=== PATIENT | male | born 1980 | race African-American/Black ===

== ENCOUNTER → 2023-09-29 | Day surgery (SDC) | payer MEDICARE ==
[2023-09-26 16:10] LABS: BASOPHILS # (AUTO) 0.1 (0.0-0.1); BASOPHILS % 1.5 % (0.0-1.0); EOSINOPHILS # (AUTO) 0.3 (0.0-0.4); EOSINOPHILS % 5.2 % (0.0-6.0); HEMATOCRIT 34.6 % (38.2-49.6); HEMOGLOBIN 11.3 g/dL (14.0-18.0); LYMPHOCYTES # (AUTO) 1.9 (1.0-3.2); LYMPHOCYTES % 35.4 % (18.0-39.1); MEAN CORPUSCULAR HEMOGLOBIN 29.5 pg (28-32); MEAN CORPUSCULAR HGB CONC 32.7 g/dL (31-35); MEAN CORPUSCULAR VOLUME 90.3 fL (81-99); MONOCYTES # (AUTO) 0.5 (0.2-0.8); MONOCYTES % 9.9 % (4.4-11.3); NEUTROPHILS # (AUTO) 2.6 (2.1-6.9); NEUTROPHILS % 47.6 % (38.7-80.0); PLATELET COUNT 292 x10e3/uL (140-360); RED BLOOD COUNT 3.83 x10e6/uL (4.3-5.7); RED CELL DISTRIBUTION WIDTH 17.7 % (11.7-14.4); WHITE BLOOD COUNT 5.37 x10e3/uL (4.8-10.8)
[~2023-09-29] MED LIST: ACETAMINOPHEN 1000 MG/100 ML IV PRN; ASPIRIN 325 MG TAB PO SCH; CALCIUM PO; CARVEDILOL6.25 MG PO; CELECOXIB 100 MG CAP PO SCH; DEXAMETHASONE SOD PHOS INJ 4 MG/ML SDV ONE; DIPHENHYDRAMINE HCL INJ 50 MG/ML VIAL IV PRN; DOCUSATE SODIUM 100 MG CAP PO PRN; FENTANYL CITRATE/PF 100MCG/2 ML INJ ONE; FEROSUL325 MG PO; GLYCOPYRROLATE INJ 0.2 MG/ML VIAL ONE; HYDRALAZINE HCL 20 MG/ML VIAL ONE; HYDROCODONE/APAP 5MG-325MG TAB PO PRN; HYDROCODONE/APAP 7.5MG-325MG 1 EA TAB PO PRN; IBUPROFEN600 MG PO; LABETALOL HCL 5 MG/ML 20ML VIAL ONE; LIDOCAINE HCL 2% LOCAL INJ 5 ML SDV VIAL INJ ONE; MICARDIS20 MG PO; MIDAZOLAM HCL 2 MG/2 ML VIAL ONE; NEOSTIGMINE 1 MG/ML 10ML VIAL ONE; NEURONTIN100 MG PO; ONDANSETRON HCL INJ 2MG/ML 2ML 2 MG/ML VIAL IV PRN; ONDANSETRON HCL INJ 2MG/ML 2ML 2 MG/ML VIAL ONE; PROPOFOL IV EMULSION 10 MG/ML 20 ML VIAL ONE; ROCURONIUM BROMIDE 10 MG/ML 5ML VIAL IV ONE; ROPIVACAINE 246.25 MG, EPINEPHRINE HCL 1:1000 1ML 0.5 MG, CLONIDINE HCL 0.08 MG, KETORO... INJ ONE; SEVOFLURANE INHAL SOLN 250 ML PEN BTL ONE; SODIUM CHLORIDE 0.9% 1000ML 1,000 ML IV SCH; SODIUM CHLORIDE 0.9% 500ML 500 ML ONE; TRANEXAMIC ACID 20 ML ONE; VITAMIN D31 ML; Vancomycin IV 500 MG ONE
[2023-09-29] MEDS: DEXAMETHASONE SOD PHOS 10 MG/1 ML VIAL ONE (08:39)
[2023-09-29] MEDS: LACTATED RINGER'S 1,000 ML ONE (08:39)
[2023-09-29] MEDS: GABAPENTIN 300 MG CAP ONE (08:39)
[2023-09-29] MEDS: CEFAZOLIN SODIUM 2 GM ONE (08:39)
[2023-09-29] MEDS: CELECOXIB 200 MG CAP ONE (08:40)
[2023-09-29] MEDS: HYDROMORPHONE 1MG/1ML INJ ONE ×2 (11:58→12:20)
[2023-09-29 14:00] VITALS: BP 140/89; PULSE 80; RESP 14; O2SAT 100
== END | disposition home health service (06) ==
LOC: OR 08:13
PROVIDERS: ATTEND Specialist
DX: M87.9 Osteonecrosis, unspecified (principal); M16.11 Unilateral primary osteoarthritis, right hip; I10 Essential (primary) hypertension; I49.9 Cardiac arrhythmia, unspecified; Z01.810 Encounter for preprocedural cardiovascular examination; Z01.812 Encounter for preprocedural laboratory examination; Z79.1 Long term (current) use of non-steroidal anti-inflammatories (NSAID); Z79.899 Other long term (current) drug therapy
CPT/HCPCS: 27130; 36415 ×2; 72170; 85025; 86850; 86900; 93005; 97116; 97161; 97530; C1713; C1776 ×3; J0171; J0360; J1100 ×2; J1170; J1885; J2001; J2250; J2405; J2704; J2710; J2795; J3010; J3370; J3490; J7040; J7121

== ENCOUNTER 2024-04-06 07:44 | Observation (INO) | payer MEDICARE ==
[2024-04-05 11:45] LABS: BASOPHILS # (AUTO) 0.1 (0.0-0.1); BASOPHILS % 1.5 % (0.0-1.0); EOSINOPHILS # (AUTO) 0.3 (0.0-0.4); EOSINOPHILS % 5.3 % (0.0-6.0); HEMATOCRIT 43.9 % (38.2-49.6); HEMOGLOBIN 13.4 g/dL (14.0-18.0); LYMPHOCYTES # (AUTO) 1.4 (1.0-3.2); MEAN CORPUSCULAR HEMOGLOBIN 23.6 pg (28-32); MEAN CORPUSCULAR HGB CONC 30.5 g/dL (31-35); MEAN CORPUSCULAR VOLUME 77.4 fL (81-99); MONOCYTES # (AUTO) 0.8 (0.2-0.8); MONOCYTES % 11.9 % (4.4-11.3); NEUTROPHILS # (AUTO) 3.8 (2.1-6.9); NEUTROPHILS % 59.1 % (38.7-80.0); PLATELET COUNT 378 x10e3/uL (140-360); RED BLOOD COUNT 5.67 x10e6/uL (4.3-5.7); RED CELL DISTRIBUTION WIDTH 20.5 % (11.7-14.4); WHITE BLOOD COUNT 6.46 x10e3/uL (4.8-10.8)
[~2024-04-06] VITALS: Ht 177.8 cm; Wt 63.5 kg
[~2024-04-06 07:44] MED LIST changes: -ACETAMINOPHEN 1000 MG/100 ML IV PRN; +ACETAMINOPHEN-1 EAC4 PO; +AMLODIPINE BESY10 MG PO; -ASPIRIN 325 MG TAB PO SCH; +AUGMENTIN 500-1 EACH PO; +CELEBREX200 MG PO; -CELECOXIB 100 MG CAP PO SCH; -DEXAMETHASONE SOD PHOS INJ 4 MG/ML SDV ONE; -DIPHENHYDRAMINE HCL INJ 50 MG/ML VIAL IV PRN; -DOCUSATE SODIUM 100 MG CAP PO PRN; +DOXYCYCLINE HY100 MG PO; -FENTANYL CITRATE/PF 100MCG/2 ML INJ ONE; -GLYCOPYRROLATE INJ 0.2 MG/ML VIAL ONE; -HYDRALAZINE HCL 20 MG/ML VIAL ONE; -HYDROCODONE/APAP 5MG-325MG TAB PO PRN; -HYDROCODONE/APAP 7.5MG-325MG 1 EA TAB PO PRN; -LABETALOL HCL 5 MG/ML 20ML VIAL ONE; -LIDOCAINE HCL 2% LOCAL INJ 5 ML SDV VIAL INJ ONE; -MIDAZOLAM HCL 2 MG/2 ML VIAL ONE; -NEOSTIGMINE 1 MG/ML 10ML VIAL ONE; -ONDANSETRON HCL INJ 2MG/ML 2ML 2 MG/ML VIAL IV PRN; -ONDANSETRON HCL INJ 2MG/ML 2ML 2 MG/ML VIAL ONE; -PROPOFOL IV EMULSION 10 MG/ML 20 ML VIAL ONE; -ROCURONIUM BROMIDE 10 MG/ML 5ML VIAL IV ONE; -ROPIVACAINE 246.25 MG, EPINEPHRINE HCL 1:1000 1ML 0.5 MG, CLONIDINE HCL 0.08 MG, KETORO... INJ ONE; -SEVOFLURANE INHAL SOLN 250 ML PEN BTL ONE; -SODIUM CHLORIDE 0.9% 1000ML 1,000 ML IV SCH; -SODIUM CHLORIDE 0.9% 500ML 500 ML ONE; -TRANEXAMIC ACID 20 ML ONE; -Vancomycin IV 500 MG ONE
[2024-04-06] MEDS: DEXAMETHASONE SOD PHOS 10 MG/1 ML VIAL ONE (07:59)
[2024-04-06] MEDS: GABAPENTIN 300 MG CAP ONE (07:59)
[2024-04-06] MEDS: LACTATED RINGER'S 1,000 ML ONE (07:59)
[2024-04-06] MEDS: CEFAZOLIN SODIUM 2 GM ONE (08:00)
[2024-04-06] MEDS: CELECOXIB 200 MG CAP ONE (08:00)
[2024-04-06] MEDS ORDERED: PROPOFOL IV EMULSION 10 MG/ML 20 ML VIAL ONE (08:57)
[2024-04-06] MEDS ORDERED: LIDOCAINE HCL 2% LOCAL INJ 5 ML SDV VIAL INJ ONE (08:57)
[2024-04-06] MEDS ORDERED: ONDANSETRON HCL INJ 2MG/ML 2ML 2 MG/ML VIAL ONE (08:57)
[2024-04-06] MEDS ORDERED: MIDAZOLAM HCL 2 MG/2 ML VIAL ONE (09:36)
[2024-04-06] MEDS ORDERED: SODIUM CHLORIDE 0.9% 100 ML ONE ×2 (09:37→10:17)
[2024-04-06] MEDS ORDERED: FENTANYL CITRATE/PF 100MCG/2 ML INJ ONE (09:40)
[2024-04-06] MEDS ORDERED: PHENYLEPHRINE HCL 1% 10 MG/ML VIAL ONE (09:51)
[2024-04-06] MEDS ORDERED: EPHEDRINE SULFATE INJ 50 MG/ML VIAL ONE (09:57)
[2024-04-06] MEDS ORDERED: SEVOFLURANE INHAL SOLN 250 ML PEN BTL ONE (10:07)
[2024-04-06] MEDS ORDERED: DIPHENHYDRAMINE HCL INJ 50 MG/ML VIAL IV PRN (11:00)
[2024-04-06] MEDS ORDERED: ONDANSETRON HCL INJ 2MG/ML 2ML 2 MG/ML VIAL IV PRN (11:00)
[2024-04-06] MEDS ORDERED: HYDROCODONE/APAP 7.5MG-325MG 1 EA TAB PO PRN (11:00)
[2024-04-06] MEDS ORDERED: DOCUSATE SODIUM 100 MG CAP PO PRN (11:00)
[2024-04-06] MEDS: SODIUM CHLORIDE 0.9% 1000ML 1,000 ML IV SCH (11:00)
[2024-04-06 13:37] VITALS: BP 133/88; PULSE 87; RESP 18; TEMP 97; O2SAT 99
[2024-04-06] MEDS ORDERED: MICARDIS40 MG PO (14:03)
[2024-04-06] MEDS: CELECOXIB 100 MG CAP PO SCH (17:25)
[2024-04-06] MEDS: ROPIVACAINE/EPI/CLONIDINE/KET 50 ML SYRINGE INJ ONE (17:26)
[2024-04-06 20:00] VITALS: BP 133/88; PULSE 87; RESP 18; TEMP 97; O2SAT 99
[2024-04-06 20:36] VITALS: BP 117/98; PULSE 83; RESP 16; TEMP 97.3; O2SAT 100
[2024-04-06] MEDS: ASPIRIN 325 MG TAB PO SCH (22:08)
[2024-04-07 00:20] VITALS: BP 112/87; PULSE 90; RESP 17; TEMP 97.4; O2SAT 100
[2024-04-07 04:15] VITALS: BP 110/94; PULSE 86; RESP 18; TEMP 97.8; O2SAT 100
[2024-04-07] MEDS: HYDROCODONE/APAP 5MG-325MG TAB PO PRN (05:05)
[2024-04-07 05:16] LABS: HEMATOCRIT 30.8 % (38.2-49.6); HEMOGLOBIN 9.7 g/dL (14.0-18.0)
[2024-04-07 08:00] VITALS: BP 115/95; PULSE 88; RESP 20; TEMP 97.6; O2SAT 100
[2024-04-07] MEDS: AMLODIPINE BESYLATE 10 MG TAB PO SCH (09:09)
[2024-04-07] MEDS: GABAPENTIN 100 MG CAP PO SCH (09:09)
[2024-04-07] MEDS ORDERED: ACETAMINOPHEN 1000 MG/100 ML IV PRN (11:00)
[2024-04-07] MEDS ORDERED: ASPIRIN81 MG PO (11:26)
[2024-04-07 11:42] VITALS: BP 115/95; PULSE 88; RESP 20; TEMP 97.6; O2SAT 100
[2024-04-07 12:00] VITALS: BP 126/93; PULSE 85; RESP 18; TEMP 97.8; O2SAT 100
== END 2024-04-07 12:55 | disposition home health service (06) ==
LOC: OR 07:44 → PACU V 12:38 → MED/SURG 13:33
PROVIDERS: ADMIT Specialist; ATTEND Specialist
DX: M87.052 Idiopathic aseptic necrosis of left femur (principal); D64.9 Anemia, unspecified; I10 Essential (primary) hypertension; Z72.0 Tobacco use; Z96.641 Presence of right artificial hip joint
CPT/HCPCS: 27130; 36415 ×2; 72170; 85014; 85018; 85025; 86850; 86900; 93005; 97116 ×2; 97161; 97530 ×2; C1713; C1776 ×3; G0378 ×2; J0690 ×2; J1100; J2003; J2250; J2371; J2405; J2704; J3010; J7030; J7050; J7121

== ENCOUNTER → 2024-09-21 | Day surgery (SDC) | payer MEDICARE ==
[2024-09-15 14:22] LABS: EST GLOMERULAR FILTRATION RATE 114.0 ML/MIN (>=60)
[~2024-09-21] MED LIST changes: +ASPIRIN81 MG PO; +LIDOCAINE HCL 2% LOCAL INJ 5 ML SDV VIAL INJ ONE; +MICARDIS40 MG PO; +PROPOFOL IV EMULSION 10 MG/ML 20 ML VIAL ONE; +ROPIVACAINE/EPI/CLONIDINE/KET 50 ML SYRINGE INJ ONE
[2024-09-21] MEDS: LACTATED RINGER'S 1,000 ML ONE (06:40)
[2024-09-21 07:51] VITALS: TEMP 98.2
[2024-09-21 08:05] VITALS: BP 114/81; PULSE 98; RESP 16; O2SAT 99
[2024-09-21 11:05] LABS: BODY FLUID COLOR YELLOW
[2024-09-21 11:06] LABS: BODY FLUID APPEARANCE CLOUDY
[2024-09-21 11:07] LABS: WBC,BODY FLUID 995499 cells/uL
[2024-09-21 12:06] LABS: LYMPHOCYTES,BODY FLUID 10 %; MONO/MACROPHG,BODY FLUID 5 %; NEUTROPHILS,BODY FLUID 85 %; TOTAL CELLS COUNTED (DIFF) 100
== END | disposition home or self-care (01) ==
LOC: OR 05:34
PROVIDERS: ATTEND Specialist
DX: T84.51XA Infection and inflammatory reaction due to internal right hip prosthesis, initial encounter (principal); B95.61 Methicillin susceptible Staphylococcus aureus infection as the cause of diseases classified elsewhere; Y83.1 Surgical operation with implant of artificial internal device as the cause of abnormal reaction of the patient, or of later complication, without mention of misadventure at the time of the procedure; I10 Essential (primary) hypertension; E78.5 Hyperlipidemia, unspecified; F17.210 Nicotine dependence, cigarettes, uncomplicated; F12.90 Cannabis use, unspecified, uncomplicated; F10.90 Alcohol use, unspecified, uncomplicated; G89.29 Other chronic pain; M54.9 Dorsalgia, unspecified; M54.2 Cervicalgia; Z79.82 Long term (current) use of aspirin; Z96.642 Presence of left artificial hip joint; Z79.1 Long term (current) use of non-steroidal anti-inflammatories (NSAID); Z79.899 Other long term (current) drug therapy; Z01.810 Encounter for preprocedural cardiovascular examination; Z01.812 Encounter for preprocedural laboratory examination
CPT/HCPCS: 20610; 36415 ×2; 77002; 80048; 87070; 87186; 87205; 89051; 93005; J2003; J2704; J7121

== ENCOUNTER 2024-10-12 07:03 | Inpatient (IN) | payer MEDICARE ==
[2024-10-11 11:55] LABS: BASOPHILS % 1.4 % (0.0-1.0); EOSINOPHILS % 3.1 % (0.0-6.0); LYMPHOCYTES % 26.1 % (18.0-39.1); MONOCYTES % 14.4 % (4.4-11.3); NEUTROPHILS % 54.5 % (38.7-80.0); RED CELL DISTRIBUTION WIDTH 21.0 % (11.7-14.4)
[~2024-10-12] VITALS: Ht 177.8 cm; Wt 67.6 kg
[~2024-10-12 07:03] MED LIST changes: -LIDOCAINE HCL 2% LOCAL INJ 5 ML SDV VIAL INJ ONE; -PROPOFOL IV EMULSION 10 MG/ML 20 ML VIAL ONE; -ROPIVACAINE/EPI/CLONIDINE/KET 50 ML SYRINGE INJ ONE
[2024-10-12] MEDS ORDERED: ROPIVACAINE/EPI/CLONIDINE/KET 50 ML SYRINGE INJ ONE (08:00)
[2024-10-12] MEDS: LACTATED RINGER'S 1,000 ML ONE (09:06)
[2024-10-12] MEDS: CEFAZOLIN SODIUM 2 GM ONE (09:06)
[2024-10-12] MEDS: DEXAMETHASONE SOD PHOS 10 MG/1 ML VIAL ONE (09:07)
[2024-10-12] MEDS: CELECOXIB 200 MG CAP ONE (09:07)
[2024-10-12] MEDS: GABAPENTIN 300 MG CAP ONE (09:07)
[2024-10-12] MEDS: SODIUM CHLORIDE 0.9% 250ML 250 ML ONE (09:47)
[2024-10-12] MEDS: Vancomycin IV 1 GM VIAL ONE (09:48)
[2024-10-12] MEDS ORDERED: FENTANYL CITRATE/PF 100MCG/2 ML INJ ONE ×2 (10:00→13:33)
[2024-10-12] MEDS ORDERED: ONDANSETRON HCL INJ 2MG/ML 2ML 2 MG/ML VIAL ONE (10:00)
[2024-10-12] MEDS ORDERED: PROPOFOL IV EMULSION 10 MG/ML 20 ML VIAL ONE ×2 (10:00→11:46)
[2024-10-12] MEDS ORDERED: LIDOCAINE HCL 2% LOCAL INJ 5 ML SDV VIAL INJ ONE ×2 (10:00)
[2024-10-12] MEDS ORDERED: MIDAZOLAM HCL 2 MG/2 ML VIAL ONE (10:52)
[2024-10-12] MEDS ORDERED: HYDROMORPHONE 2MG/ML ONE (11:10)
[2024-10-12] MEDS ORDERED: ACETAMINOPHEN 1000 MG/100 ML 100 ML IV ONE (11:19)
[2024-10-12] MEDS ORDERED: SEVOFLURANE INHAL SOLN 250 ML PEN BTL ONE (11:19)
[2024-10-12] MEDS ORDERED: LABETALOL HCL 20 ML ONE (11:53)
[2024-10-12] MEDS ORDERED: DOCUSATE SODIUM 100 MG CAP PO PRN (13:30)
[2024-10-12] MEDS ORDERED: ONDANSETRON HCL INJ 2MG/ML 2ML 2 MG/ML VIAL IV PRN (13:30)
[2024-10-12] MEDS ORDERED: ACETAMINOPHEN 650 MG SUPP PR PRN (13:30)
[2024-10-12] MEDS ORDERED: Vancomycin IV 1 GM in SODIUM CHLORIDE 0.9% 250ML 250 ML IV SCH (13:30)
[2024-10-12] MEDS ORDERED: DIPHENHYDRAMINE HCL INJ 50 MG/ML VIAL IV PRN (13:30)
[2024-10-12] MEDS: HYDROMORPHONE 1MG/1ML INJ ONE (13:40)
[2024-10-12] MEDS: HYDRALAZINE HCL 20 MG/ML VIAL ONE (14:25)
[2024-10-12] MEDS: LORAZEPAM INJ 2 MG/ML VIAL ONE (15:17)
[2024-10-12 15:45] VITALS: BP 121/85; PULSE 104; RESP 17; TEMP 97.4; O2SAT 100
[2024-10-12 15:47] VITALS: BP 121/85; PULSE 104; RESP 18; TEMP 97; O2SAT 100
[2024-10-12] MEDS: ASPIRIN 325 MG TAB PO SCH (16:49)
[2024-10-12] MEDS: HYDROCODONE/APAP 7.5MG-325MG 1 EA TAB PO PRN (16:50)
[2024-10-12] MEDS: CELECOXIB 100 MG CAP PO SCH (16:51)
[2024-10-12] MEDS: SODIUM CHLORIDE 0.9% 1000ML 1,000 ML IV SCH (16:51)
[2024-10-12 18:00] VITALS: BP 121/85; PULSE 104; RESP 18; TEMP 97; O2SAT 100
[2024-10-12 18:50] VITALS: BP 121/85; PULSE 104; RESP 18; TEMP 97; O2SAT 100
[2024-10-12 20:00] VITALS: BP 130/91; PULSE 103; RESP 18; RESP 20; TEMP 97.5; TEMP 98.2; O2SAT 100
[2024-10-12] MEDS: ZOLPIDEM TARTRATE 5 MG TAB PO PRN (20:27)
[2024-10-12] MEDS: Vancomycin IV 1 GM in SODIUM CHLORIDE 0.9% 250ML 250 ML IV SCH (20:35)
[2024-10-13] VITALS (10 sets, daily range): BP systolic 109–148; BP diastolic 75–101; PULSE 74–105; RESP 18–20; TEMP 97.7–98.2; O2SAT 97–100
[2024-10-13] MEDS: GABAPENTIN 300 MG CAP PO SCH (09:01)
[2024-10-13] MEDS: RIFAMPIN 300 MG CAP PO SCH (09:01)
[2024-10-13] MEDS: AMLODIPINE BESYLATE 10 MG TAB PO SCH (09:02)
[2024-10-13] MEDS ORDERED: ACETAMINOPHEN 1000 MG/100 ML IV PRN (13:30)
[2024-10-13] MEDS: HYDROCODONE/APAP 5MG-325MG TAB PO PRN (22:17)
[2024-10-14 03:01] VITALS: BP 122/89; PULSE 93; RESP 18; TEMP 97.6; O2SAT 100
[2024-10-14 08:00] VITALS: BP 151/102; PULSE 95; RESP 18; TEMP 97.7; O2SAT 100
[2024-10-14 09:10] VITALS: BP 141/96; PULSE 95; RESP 20; TEMP 97.7; O2SAT 100
[2024-10-14 12:39] VITALS: BP 131/88; PULSE 98; RESP 20; TEMP 97.5; O2SAT 100
== END 2024-10-14 14:20 | disposition home or self-care (01) | DRG 467 ==
LOC: OR 07:03 → PACU V 14:02 → MED/SURG 15:00
PROVIDERS: ADMIT Specialist; ATTEND Specialist
PROC: 0SR90EZ Replacement of Right Hip Joint with Articulating Spacer, Open Approach (ICD-10-PCS; 2024-10-12)
PROC: 02HV33Z Insertion of Infusion Device into Superior Vena Cava, Percutaneous Approach (ICD-10-PCS; 2024-10-12)
PROC: 0SP90JZ Removal of Synthetic Substitute from Right Hip Joint, Open Approach (ICD-10-PCS; principal; 2024-10-12 10:50)
DX: T84.51XA Infection and inflammatory reaction due to internal right hip prosthesis, initial encounter (principal); M00.851 Arthritis due to other bacteria, right hip; B95.61 Methicillin susceptible Staphylococcus aureus infection as the cause of diseases classified elsewhere; M19.90 Unspecified osteoarthritis, unspecified site; D64.9 Anemia, unspecified; Z96.643 Presence of artificial hip joint, bilateral
CPT/HCPCS: 36415; 36569; 71045; 72170; 85014; 85018; 85025; 86850; 86900; 94799; C1713; J0360; J0690; J1100; J1171; J2003; J2060; J2250; J2405; J3373; J7030; J7050